=== PATIENT | female | born 1955 | race Caucasian/White ===

== ENCOUNTER → 2017-09-03 10:52 | Outpatient (CLI) | payer OTHER | END | disposition home or self-care (01) | LOC: D.CT 10:52 | DX: R05 Cough (principal) ==

== ENCOUNTER → 2017-09-16 07:32 | Outpatient (CLI) | payer OTHER | END | disposition home or self-care (01) | LOC: D.MRI 09-09 08:30 | DX: R93.8 Abnormal findings on diagnostic imaging of other specified body structures (principal) ==